=== PATIENT | female | born 1945 | race Caucasian/White ===

== ENCOUNTER → 2016-09-12 | Outpatient (CLI) | payer MEDICARE ==
[~2016-09-12] MED LIST: ALBUTEROL0.63 MG/3 INH; DITROPAN XL15 MG PO; ESCITALOPRAM OX20 MG PO; HUMALOG MI100 UNIT/3 SQ; IRON325 M1 PO; ISOSORBIDE MONO30 MG PO; LAMICTAL100 MG PO; LANTUS100 UNIT/1 SQ; LASIX40 MG PO; LASIX80 MG PO; LEVAQUIN500 MG PO; LEVOTHYROXINE25 MCG PO; MEDROL DOSEPAK 24 MG PO; NAPROXEN500 MG PO; NEURONTIN 400400 MG PO; PLAVIX 75 MG TA75 MG PO; POTASSIUM CHLO10 MEQ PO; PROAIR HFA8.5 GM INH; PROTONIX40 MG PO; SPIRIVA HANDIH18 MCG INH; TOPROL XL 25 MG25 MG PO
[2016-09-12 14:41] LABS: RED BLOOD COUNT 4.05 M/UL (4.00-5.10); WHITE BLOOD COUNT 6.8 K/UL (4.5-11.0)
== END ==
PROVIDERS: Internal Medicine Pulmonary Disease
DX: R09.02 Hypoxemia (principal); Z88.5 Allergy status to narcotic agent; Z88.1 Allergy status to other antibiotic agents
CPT/HCPCS: 36415; 36600; 82803; 85027

== ENCOUNTER → 2016-10-13 | Outpatient (CLI) | payer MEDICARE | LOC: KOH-I 15:20 | DX: M25.562 Pain in left knee (principal); M25.572 Pain in left ankle and joints of left foot | CPT/HCPCS: 73564; 73610; 73630 ==

== ENCOUNTER 2021-03-02 22:06 | Emergency (ER) | payer MEDICARE ==
[~2021-03-02 22:06] MED LIST changes: +AMOX TR-K CLV1 EAC4 PO; +ASPIR 8181 MG PO; +CELEXA20 MG PO; +CRESTOR10 MG PO; +DIFLUCAN150 MG PO; +DOXYCYCLINE HY100 MG PO; +FUROSEMIDE80 MG PO; +HUMALOG MI100 UNIT/4 SQ; +HUMALOG MI100 UNITS/ SQ; +HUMIBID LA TAB600 MG PO; +ISOSORBIDE DINI30 MG PO; +KLOR-CON M1010 MEQ PO; +LAMICTAL XR100 MG PO; +LEVOXYL25 MCG PO; +MEDROL4 MG PO; +METOPROLOL TART25 MG PO; +MYCOSTATIN POWD15 GM EXT; +NAPROSYN500 MG PO; +NEURONTIN800 MG PO; +NORCO 7.5-3251 EACH PO; +PLAVIX75 MG PO; +PREDNISONE10 MG PO; +PREDNISONE50 MG PO; +VENTOLIN HFA 66.7 GM INH; +vitamin D2 PO
[2021-03-02 23:12] LABS: WHITE BLOOD COUNT 5.2 K/UL (4.5-11.0)
[2021-03-02 23:45] LABS: BUN/CREATININE RATIO 18 (0-10)
== END 2021-03-03 02:10 | disposition home or self-care (01) ==
LOC: ER1 22:06
PROVIDERS: Physician Assistant
DX: I16.9 Hypertensive crisis, unspecified (principal); R20.0 Anesthesia of skin; E11.9 Type 2 diabetes mellitus without complications; E78.00 Pure hypercholesterolemia, unspecified; Z95.1 Presence of aortocoronary bypass graft; E03.9 Hypothyroidism, unspecified
CPT/HCPCS: 70450; 71045; 80053; 82550; 82553; 83874; 84484; 85025; 93005; 99284

== ENCOUNTER → 2021-04-27 | Outpatient (CLI) | payer MEDICARE, OTHER | LOC: RAD 14:06 | DX: M25.561 Pain in right knee (principal); M25.562 Pain in left knee; M17.0 Bilateral primary osteoarthritis of knee | CPT/HCPCS: 73560 ==

== ENCOUNTER → 2021-08-23 | Outpatient (CLI) | payer OTHER | LOC: HEART 5 10:30 | DX: R06.02 Shortness of breath (principal); I65.29 Occlusion and stenosis of unspecified carotid artery; I65.23 Occlusion and stenosis of bilateral carotid arteries | CPT/HCPCS: 93306; 93880 ==

== ENCOUNTER → 2021-09-07 | Outpatient (CLI) | payer OTHER | LOC: EXRD 07:43 | DX: R74.01 Elevation of levels of liver transaminase levels (principal); K76.89 Other specified diseases of liver; Z90.49 Acquired absence of other specified parts of digestive tract; K83.8 Other specified diseases of biliary tract | CPT/HCPCS: 76705 ==

== ENCOUNTER → 2022-01-12 | Outpatient (CLI) | payer OTHER | LOC: NM 10:46 | DX: I20.9 Angina pectoris, unspecified (principal) | CPT/HCPCS: 78452; 93017; A9502; J2785 ==